=== PATIENT | male | born 1940 ===

== ENCOUNTER 2018-09-13 11:36 | Emergency (ER) | payer OTHER ==
--- NOTE | 2018-09-13 13:02 | C.PDOC ---
History Of Present Illness 89 year old female presents to the ED for evaluation of persistent hematuria for 2 weeks. Patient reports the last episode was last night, this morning urine was clear, and she is currently asymptomatic. Patient notes prior visit to [facility] this week for similar symptoms where a piedra was placed and removed. Denies fever, chills, nausea, vomiting, and any other associated symptoms. Time Seen by Provider: 09/13/18 12:59 Chief Complaint (Nursing): Male Genitourinary History Per: Patient History/Exam Limitations: no limitations Onset/Duration Of Symptoms: Days Current Symptoms Are (Timing): Still Present Past Medical History Reviewed: Historical Data, Nursing Documentation, Vital Signs Vital Signs: Last Vital Signs Temp 97.7 F 09/13/18 11:42 Pulse 82 09/13/18 11:42 Resp 20 09/13/18 11:42 BP 171/109 H 09/13/18 11:42 Pulse Ox 97 09/13/18 11:42 - Medical History PMH: Benign Prostatic Hyperplasia, HTN, Hyperlipidemia, Parkinson's Disease Family History: States: Unknown Family Hx - Social History Hx Alcohol Use: No Hx Substance Use: No - Immunization History Hx Tetanus Toxoid Vaccination: No Hx Influenza Vaccination: No Hx Pneumococcal Vaccination: No Review Of Systems Except As Marked, All Systems Reviewed And Found Negative. Constitutional: Negative for: Fever, Chills Gastrointestinal: Negative for: Nausea, Vomiting Genitourinary: Positive for: Hematuria Physical Exam - Physical Exam Appears: Well, Non-toxic Skin: Normal Color, Warm, Dry Head: Atraumatic, Normacephalic Eye(s): bilateral: Normal Inspection Oral Mucosa: Moist Neck: Normal ROM, Supple Chest: Symmetrical, No Deformity Cardiovascular: Rhythm Regular, No Murmur Respiratory: Normal Breath Sounds, No Rales, No Rhonchi, No Wheezing, Other (NARD.) Gastrointestinal/Abdominal: Normal Exam, Soft, No Tenderness Neurological/Psych: Oriented x3, Normal Speech ED Course And Treatment - Laboratory Results Result Diagrams: 09/13/18 13:01 09/13/18 13:01 O2 Sat by Pulse Oximetry: 97 (RA) Pulse Ox Interpretation: Normal Progress - Re-Evaluation Re-evaluation Note: 09/13/18 13:03 D/W DR Jennifer HENDERSON FOR POSSIBLE CYSTOSCOPY, O.R. PENDING 09/13/18 15:16 D/W DR HENDERSON, NO OR AVAIL TODAY. DC AFTER CT SCAN, WILL FU FOR POSSIBLE PROCEDURE 09/1509/13/18 15:37 COMFORTABLE NAD NO RECUR SINCE PRIOR EVAL 09/13/18 17:28 CT REPORT D/W DR HENDERSON WILL FU W PT SCHEDULED THIS WEEK. - Data Reviewed Data Reviewed: Lab, Diagnostic imaging, Old records Medical Decision Making Medical Decision Making: Plan: -Blood sent. Urinalysis. Progress/Update: Patient stable for discharge home. Disposition Counseled Patient/Family Regarding: Studies Performed, Diagnosis - Disposition Referrals: Sarina Henderson MD [Staff Provider] - Disposition: HOME/ ROUTINE Disposition Time: 15:37 Condition: IMPROVED Instructions: Blood in the Urine (Hematuria), Adult (DC) Forms: [employer] (Nicaraguan) Print Language: ESTONIAN - Clinical Impression Clinical Impression: Hematuria - Scribe Statement The provider has reviewed the documentation as recorded by the Scribe (Kamla Larry) Provider Attestation: All medical record entries made by the Scribe were at my direction and personally dictated by me. I have reviewed the chart and agree that the record accurately reflects my personal performance of the history, physical exam, medical decision making, and the department course for this patient. I have also personally directed, reviewed, and agree with the discharge instructions and disposition.
[2018-09-13 13:06] LABS: BASO # 0.1 K/uL (0.0-0.2); EOS # 0.2 K/uL (0.0-0.7); EOS % 2.1 % (0.0-4.0); HEMOGLOBIN 15.1 g/dL (12.0-18.0); LYMPH # 1.3 K/uL (1.0-4.3); LYMPH % 13.3 % (20.0-40.0); MEAN CORPUSCULAR HEMOGLOBIN 30.4 pg (27.0-31.0); MEAN CORPUSCULAR HGB CONC 33.8 g/dL (33.0-37.0); MONO # 0.8 K/uL (0.0-0.8); MONO % 7.9 % (0.0-10.0); NEUT # 7.2 K/uL (1.8-7.0); NEUT % 75.7 % (50.0-75.0); RBC 4.96 Mil/uL (4.40-5.90); RED CELL DISTRIBUTION WIDTH 14.1 % (11.5-14.5); WHITE BLOOD COUNT 9.5 K/uL (4.8-10.8)
[2018-09-13 13:16] LABS: URINE BILIRUBIN NEGATIVE (NEGATIVE); URINE BLOOD 1+ (NEGATIVE); URINE CLARITY Clear (Clear); URINE COLOR Straw (YELLOW); URINE GLUCOSE (UA) NORMAL (Normal); URINE LEUKOCYTE ESTERASE NEG Leu/uL (Negative); URINE PROTEIN NEGATIVE (NEGATIVE); URINE UROBILINOGEN NORMAL mg/dL (0.2-1.0)
[2018-09-13 13:37] LABS: ALB/GLOB RATIO 1.1 (1.0-2.1); ALBUMIN 3.5 g/dL (3.5-5.0); ALT/SGPT 27 U/L (21-72); AST/SGOT 28 U/L (17-59); BLOOD UREA NITROGEN 11 mg/dL (9-20); CALCIUM 9.1 mg/dl (8.6-10.4); GFR NON-AFRICAN AMERICAN > 60
[2018-09-13] MEDS ORDERED: Iodixanol 320 MG/ML 100 ML BOTTLE IV ONE (15:15)
[2018-09-13 15:22] VITALS: BP 171/90; PULSE 62; RESP 18; TEMP 98.3
[2018-09-13 15:38] VITALS: O2SAT 97
--- NOTE | 2018-09-13 16:51 | CT ---
Date of service: 09/13/2018 PROCEDURE: CT Abdomen and Pelvis with contrast HISTORY: hematuria COMPARISON: None available. TECHNIQUE: Contrast dose: 100 mL Visipaque IV Radiation dose: Total exam DLP = 585.52 mGy-cm. This CT exam was performed using one or more of the following dose reduction techniques: Automated exposure control, adjustment of the mA and/or kV according to patient size, and/or use of iterative reconstruction technique. FINDINGS: LOWER THORAX: Streaky atelectasis or consolidation involving the lateral right lower lobe. No visible pleural effusion or pneumothorax. Coronary artery calcifications. Fluid within the imaged portions of the esophagus consistent with gastroesophageal reflux. LIVER: Unremarkable. GALLBLADDER AND BILE DUCTS: Unremarkable. PANCREAS: Fatty atrophy. SPLEEN: 9 mm probable splenule. Otherwise unremarkable. ADRENALS: Unremarkable. KIDNEYS AND URETERS: The kidneys enhance symmetrically. No hydronephrosis or obstructing calculus identified. 18 mm low-density left renal lesion, favored to represent a cyst. Too small to characterize bilateral renal hypodensities, statistically likely cysts. VASCULATURE: Ectatic aorta. Aneurysmal dilatation of the distal thoracic aorta measuring approximately 3.7 cm in transverse dimension (series 3, image 23). Dense atherosclerotic calcification and mural plaque present. BOWEL: Stomach is nondistended. Lack of oral contrast limits evaluation for bowel pathology. Bowel loops appear within normal limits of caliber without evidence of obstruction. APPENDIX: The appendix appears within normal limits of caliber. No secondary signs of acute appendicitis. PERITONEUM: No significant free fluid. No definite free air. LYMPH NODES: 13 mm right inguinal lymph node. 8 mm left inguinal hernia. 11 mm pelvic lymph node 11 mm lymph node along the left pelvic sidewall. Numerous additional smaller pelvic lymph nodes evident. BLADDER: Unremarkable. REPRODUCTIVE: Markedly enlarged prostate gland measuring approximately 7.2 x 8.3 cm. BONES: Multilevel degenerative changes. Scoliosis convex to the right. Bilateral L5 spondylolysis. OTHER FINDINGS: Fat containing left inguinal hernia. IMPRESSION: Markedly enlarged prostate gland which appears heterogeneous. Recommend correlation with PSA. Adenopathy as above. 18 mm low-density left renal lesion, favored to represent a cyst. Too small to characterize bilateral renal hypodensities, statistically likely cysts. Renal ultrasound may be considered for further evaluation. Aneurysmal dilatation of the distal thoracic aorta measuring approximately 3.7 cm in transverse dimension. Streaky atelectasis or consolidation involving the lateral right lower lobe. Gastroesophageal reflux. Additional findings as above. Findings discussed with Dr. Graham on 09/13/18 at 4:41 p.m.
== END 2018-09-13 16:09 | disposition home or self-care (01) ==
LOC: C.ER 11:36
DX: R31.9 Hematuria, unspecified (principal); E78.5 Hyperlipidemia, unspecified; G20 Parkinson's disease; I10 Essential (primary) hypertension; N40.0 Benign prostatic hyperplasia without lower urinary tract symptoms
CPT/HCPCS: 74177; 80053; 81001; 85025; 99285; Q9967

== ENCOUNTER 2018-09-15 07:10 | Inpatient (IN) | payer OTHER ==
--- NOTE | 2018-09-15 08:07 | C.PDOC ---
History Of Present Illness Quan Lugo is a 78 year old male with PMHx of enlarged prostate presents to the ED sent by Dr. Ciaran Henderson for a procedure today. Patient was evaluated in ED 2 days ago with blood in his urine . Denies any physical complaints. Time Seen by Provider: 09/15/18 07:21 Chief Complaint (Nursing): Medical Clearance History Per: Patient History/Exam Limitations: no limitations Current Symptoms Are (Timing): Still Present Severity: Mild Past Medical History Reviewed: Historical Data, Nursing Documentation, Vital Signs Vital Signs: Last Vital Signs Temp 97.9 F 09/15/18 07:16 Pulse 71 09/15/18 07:16 Resp 18 09/15/18 07:16 BP 156/101 H 09/15/18 07:16 Pulse Ox 97 09/15/18 07:16 - Medical History PMH: Benign Prostatic Hyperplasia, HTN, Hyperlipidemia, Parkinson's Disease Family History: States: Unknown Family Hx - Social History Hx Alcohol Use: No Hx Substance Use: No - Immunization History Hx Tetanus Toxoid Vaccination: No Hx Influenza Vaccination: No Hx Pneumococcal Vaccination: No Review Of Systems Except As Marked, All Systems Reviewed And Found Negative. Constitutional: Negative for: Fever, Chills Gastrointestinal: Negative for: Nausea, Vomiting, Abdominal Pain, Diarrhea Genitourinary: Positive for: Hematuria Physical Exam - Physical Exam Appears: Non-toxic, No Acute Distress Skin: Warm, Dry Head: Normacephalic Eye(s): bilateral: Normal Inspection Oral Mucosa: Moist Neck: Normal ROM, Supple Chest: Symmetrical Cardiovascular: Rhythm Regular Respiratory: No Rales, No Rhonchi, No Wheezing Gastrointestinal/Abdominal: Soft, No Tenderness, No Distention, No Guarding, No Rebound Back: No CVA Tenderness Extremity: Normal ROM Neurological/Psych: Oriented x3, Normal Speech Disoriented To: Person ED Course And Treatment ECG: Interpreted By Me ECG Rhythm: Sinus Rhythm, Sinus Bradycardia ECG Interpretation: Normal Rate From EC O2 Sat by Pulse Oximetry: 97 (RA) Pulse Ox Interpretation: Normal - Radiology CXR: Interpreted by Me CXR Interpretation: Yes: No Acute Disease Reassessment Condition: Unchanged Medical Decision Making Medical Decision Making: Plan - EKG - CXR - IV fluids - UA - Bloodwork Disposition Doctor Will See Patient In The: Hospital - Disposition Disposition: HOSPITALIZED Disposition Time: 09:15 Condition: STABLE - POA Present On Arrival: None - Clinical Impression Clinical Impression: Hematuria - PA / BRAILLE TRANSCRIBER / Resident Statement MD/DO has reviewed & agrees with the documentation as recorded. - Scribe Statement The provider has reviewed the documentation as recorded by the Scribe Linda Lorenz All medical record entries made by the Saiibe were at my direction and personally dictated by me. I have reviewed the chart and agree that the record accurately reflects my personal performance of the history, physical exam, medical decision making, and the department course for this patient. I have also personally directed, reviewed, and agree with the discharge instructions and disposition.
[2018-09-15] MEDS: Sodium Chloride 0.9% 1,000 ML IV SCH (08:41)
--- NOTE | 2018-09-15 11:44 | RAD ---
HISTORY: SOB COMPARISON: Lung bases on CT abdomen and pelvis with IV contrast performed 09/13/18 TECHNIQUE: Chest, one view. FINDINGS: Examination limited by habitus and patient obliquity. LUNGS: Atelectasis/consolidation right lower lobe. Mild left basilar atelectasis. Please note that chest x-ray has limited sensitivity for the detection of pulmonary masses. PLEURA: No significant pleural effusion identified. No definite pneumothorax . CARDIOVASCULAR: Mild cardiomegaly. Atherosclerotic calcifications of an ectatic aorta. OSSEOUS STRUCTURES: Chronic appearing right rib fracture deformities. VISUALIZED UPPER ABDOMEN: Unremarkable. OTHER FINDINGS: None. IMPRESSION: Atelectasis/consolidation right lower lobe. Mild left basilar atelectasis.
[2018-09-15] MEDS ORDERED: Iohexol 240 (50 ml) ONE (15:49)
[2018-09-15] MEDS ORDERED: cefTRIAXone 1 gm 1 GM/100 ML BAG IVPB ONE (15:49)
[2018-09-15] MEDS ORDERED: Lidocaine 2% Jelly (Uro-Jet) ONE (15:50)
[2018-09-15] MEDS ORDERED: HYDROmorphone 0.5 mg/0.5 ml ISec IVP PRN (16:01)
[2018-09-15] MEDS ORDERED: Propofol 10 mg/ml Inj (20 ML) ONE (16:07)
[2018-09-15] MEDS ORDERED: Lactated Ringer's 1,000 ML IV ONE (16:57)
--- NOTE | 2018-09-15 17:52 | RAD ---
Date of service: 09/15/2018 PROCEDURE: Intraoperative Fluoroscopy. HISTORY: HEMATURIA FINDINGS: Fluoroscopic assistance was provided f for Flouroscopy time =4.5s and radiation dose 0.15858 mGy Please refer to the operative report from Dr. BAEZ, [place].
[2018-09-15] MEDS ORDERED: Oxycodone/Acetaminophen 5/325 mg Tab PO PRN (18:21)
--- NOTE | 2018-09-15 18:24 | CP.PCM.CON ---
History of Present Illness - History of Present Illness History of Present Illness: uROLOGY CONSULTATION IMP: HEMATURIA BPH PARKINSONS DISEASE FULL NOTE T/F Past Patient History - Infectious Disease Hx of Infectious Diseases: None - Past Social History Smoking Status: Never Smoked - CARDIAC Hx Hypertension: Yes - NEUROLOGICAL Hx Parkinson's Disease: Yes - PSYCHIATRIC Hx Substance Use: No - SURGICAL HISTORY Other/Comment: Prostate surgery - ANESTHESIA Hx Anesthesia: Yes Hx Anesthesia Reactions: No Meds Allergies/Adverse Reactions: Allergies Allergy/AdvReac Type Severity Reaction Status Date / Time No Known Allergies Allergy Verified 09/13/18 11:48 - Medications Medications: Current Medications Sodium Chloride (Sodium Chloride 0.9%) 1,000 mls @ 100 mls/hr IV .Q10H CURLY Last Admin: 09/15/18 08:41 Dose: 100 mls/hr Results - Vital Signs Recent Vital Signs: Last Vital Signs Temp 97.4 F L 09/15/18 16:57 Pulse 79 09/15/18 18:15 Resp 12 09/15/18 18:15 BP 160/85 H 09/15/18 18:15 Pulse Ox 100 09/15/18 18:15 Assessment & Plan - Date & Time Date: 09/15/18 Time: 15:30
--- NOTE | 2018-09-15 18:26 | PCM.SURG1 ---
Surgeon's Initial Post Op Note - Surgeon's Notes Surgeon: Jennifer BAEZ Wig Maker: NONE Pre-Operative Diagnosis: HENMATURIA Operative Findings: SAME. ENLARGED PROSTATE. BLEEDING OF PROSTATIC ORIGIN Post-Operative Diagnosis: SAME Operation Performed: CYSTOSCOPY. FULGURATION OF PROSTATIC BLEEDING. CYSTOGRAM Specimen/Specimens Removed: URINE Estimated Blood Loss: EBL {In ML}: 50 Blood Products Given: N/A Post-Op Condition: Good Date of Surgery/Procedure: 09/15/18 Time of Surgery/Procedure: 16:30
[2018-09-15 20:34] VITALS: RESP 20
--- NOTE | 2018-09-15 23:20 | CP.PCM.HP ---
<Lisa Kat P - Last Filed: 09/16/18 04:13> History of Present Illness - History of Present Illness History of Present Illness: H&P for hospitalist service HPI: 78 year old male with PMHx of HTN, enlarged prostate and possible Parkinson's disease presented for intermittent hematuria for the past 2 weeks and was admitted s/p cystoscopy, cystogram and fulguration of prostatic bleed with Dr. Jennifer Henderson on 09/15. Patient complains of mild burning pain to penis since the procedure. Denies fever, chills, nausea, vomiting, dizziness, chest pain, shortness of breath, and abdominal pain. PMHx: HTN, enlarged prostate and possible Parkinson's disease PSHx: Prostate surgery 10 years ago, appendectomy 6 years ago. Meds: Losartan 50mg QD, Medications from [facility]: Xicooneural 3, Biperideno 2, Nimotop, cerebrotin, valpakine Allergies: PCN, itching FamHx: Brother 1: DM, Brother 2: prostate cancer, Brother 3: HTN SocHx: Denies tobacco, alcohol, drugs, lives with Proxy: Paola Bustillo [phone] Code Status: full code PMD: PMD and neurologist are in [facility], has seen Dr. Serrano here. Review of Systems: -Gen: No fever, No chills, No headache, No lethargy, No weakness. -HEENT: No dizziness, No change in vision, No change in hearing, No sore throat, No dysphagia, No nasal congestion, No mucous. -Cardio: No chest pain, No palpitations, No lower extremity edema, No orthopnea. -Resp: No cough, No dyspnea, No hemoptysis, No wheezing, No pain on inspiration. -GI: No abdominal pain, No nausea/vomiting, No diarrhea, +constipation, No hematochezia, No hematemesis. -: + dysuria, No urinary freq, No incontinence, + hematuria, No change in urinary stream. -MSK: No back pain, No muscle weakness, No radiating pain. -Skin: No itching, No rash, No lesions. -Neuro: + tremulousness, No confusion, No numbness, No tingling, No focal weakness, No radicular pain, No syncope. -Psych: No anxiety, No depression, No H/I, No S/I, No hallucinations. Present on Admission - Present on Admission Any Indicators Present on Admission: No Past Patient History - Infectious Disease Hx of Infectious Diseases: None - Past Social History Smoking Status: Never Smoked - CARDIAC Hx Hypertension: Yes - NEUROLOGICAL Hx Parkinson's Disease: Yes - MUSCULOSKELETAL/RHEUMATOLOGICAL Hx Falls: No - GENITOURINARY/GYNECOLOGICAL Hx Prostate Problems: Yes - PSYCHIATRIC Hx Substance Use: No - SURGICAL HISTORY Other/Comment: Prostate surgery - ANESTHESIA Hx Anesthesia: Yes Hx Anesthesia Reactions: No Hx Malignant Hyperthermia: No Has any member of the family had a problem w/ anesthesia?: No Meds Allergies/Adverse Reactions: Allergies Allergy/AdvReac Type Severity Reaction Status Date / Time No Known Allergies Allergy Verified 09/13/18 11:48 Physical Exam - Constitutional Appears: No Acute Distress - Head Exam Head Exam: ATRAUMATIC, NORMOCEPHALIC - Eye Exam Eye Exam: EOMI, PERRL - ENT Exam ENT Exam: Mucous Membranes Moist - Neck Exam Neck exam: Positive for: Full Rom, Normal Inspection - Respiratory Exam Respiratory Exam: Clear to Auscultation Bilateral. absent: Rales, Rhonchi, Wheezes - Cardiovascular Exam Cardiovascular Exam: RRR, +S1, +S2 - GI/Abdominal Exam GI & Abdominal Exam: Normal Bowel Sounds, Soft. absent: Guarding, Rebound, Tenderness - Extremities Exam Extremities exam: Positive for: normal capillary refill, normal inspection, pedal pulses present. Negative for: calf tenderness, pedal edema, tenderness - Neurological Exam Neurological exam: Alert, CN II-XII Intact, Oriented x3 Additional comments: +tremor noted to jaw, and upper extremities - Psychiatric Exam Psychiatric exam: Normal Affect, Normal Mood - Skin Skin Exam: Dry, Intact, Warm Results - Vital Signs Recent Vital Signs: Last Vital Signs Temp 97.5 F L 09/15/18 20:32 Pulse 75 09/15/18 20:58 Resp 20 09/15/18 20:32 BP 155/102 H 09/15/18 20:58 Pulse Ox 95 09/15/18 20:32 Assessment & Plan - Assessment and Plan (Free Text) Plan: 78 year old male with PMHx of HTN, enlarged prostate and possible Parkinson's disease presented for intermittent hematuria with clots for the past 2 weeks and was admitted s/p cystoscopy, cystogram and fulguration of prostatic bleed with Dr. Jennifer Henderson Prostatic enlargement S/p cystoscopy, cystogram and fulguration of prostatic bleed - Management as per Urology, Dr. Jennifer henderson -Ceftriaxone 1g IV daily -Percocet 5/325 Q4H PRN pain -NS 100 mls/hr Hx HTN - Continue home med Losartan 50mg PO daily Hx of possible Parkinsons -Patient taking medications from [facility] -may take personal medications due to inabilty to find conversion -outpatient reconciliation of meds -Xiconeural 3 daily -Biperideno 2 daily -Nimotop BID -Cerebrotin BID -Valpakine BID Prophylaxis -SCD -Hold chemical anticoagulation due to hematuria/recent procedure -GI ppx not indicated -HHD Case discussed with attending physician, Dr. Hoyos. <Eleazar Hoyos - Last Filed: 09/16/18 06:23> Results - Vital Signs Recent Vital Signs: Last Vital Signs Temp 97.7 F 09/16/18 00:11 Pulse 78 09/16/18 00:11 Resp 20 09/16/18 00:11 BP 159/89 H 09/16/18 00:11 Pulse Ox 95 09/16/18 00:11 Assessment & Plan - Date & Time Date: 09/16/18 (I have seen and examined the patient. I agree with the findings and plan of care as documented by Dr. Kat. Patient with prostatic enlargement s/p cystoscopy. Management as per Dr Henderson. Hospitalist team notified of admission at approximately 9:15PM on 09/15/18. History of parkinson's diagnosed in patient's home country. May continue home meds. Monitor for acute changes.) Time: 06:20 Attending/Attestation - Attestation I have personally seen and examined this patient.: Yes I have fully participated in the care of the patient.: Yes I have reviewed all pertinent clinical information: Yes
[2018-09-16] MEDS: Sodium Chloride 0.9% 1,000 ML IV SCH ×2 (03:45→05:10)
--- NOTE | 2018-09-16 05:11 | OP ---
PROCEDURE DATE: 09/15/2018 UROLOGY OPERATIVE REPORT PREOPERATIVE DIAGNOSES: Hematuria. History of urinary retention. POSTOPERATIVE DIAGNOSES: Hematuria. History of urinary retention. Prostatic enlargement. Bleeding of prostatic origin. PROCEDURES: Cystoscopy. Fulguration of prostatic bleeding. Cystogram. Attempted retrograde pyelogram. OPERATING SURGEON: Sarina Henderson MD Procedure was formed under fluoroscopic control as well as video endoscopic control. DESCRIPTION OF PROCEDURE: Procedure as follows. The patient received perioperative antibiotics. The patient was placed in lithotomy position. The genitalia were prepped and draped sterilely. A 22-Eritrean cystoscope sheath was introduced under direct vision. Urethra, prostate and bladder were inspected with 30-degree and 70-degree lenses. FINDINGS: There was no stricture in the anterior urethra. There was marked prostatic hypertrophy. Prostatic urethra was approximately 5 cm in length and occlusive. There was [id number] contact bleeding from the large veins on the surface of the prostate. The bladder was somewhat obscured due to the bleeding. There was moderate bladder trabeculation. There was no bladder tumor or stone identified. The ureteral orifices could not be identified due to prostatic intrusion. Retrograde pyelogram was attempted with the cone-tip catheter; however, the ureteral orifices could not be catheterized. Fulguration of the prostate through the cystoscope sheath with using the Ball electrode was performed. However, adequate hemostasis could not be achieved. The cystoscope and sheath were removed. A 26-Eritrean continuous-flow resectoscope sheath was introduced under direct vision using the visual obturator. The resectoscope element was inserted along with the rollerball electrode. The fulguration of the multiple sites of bleeding within the lateral lobe of the prostate as well as the floor and bladder neck were performed using rollerball electrode and electrocautery. There were noted to be multiple venous bleeding sites as well as arterial bleeding sites. Hemostasis was achieved. The bladder was re-inspected. There was no bladder tumor or stone identified. The resectoscope and sheath were removed. Thomas catheter was inserted. Bladder irrigation was clear. Rectal examination was performed. Prostate was supple and smooth approximately 50 to 60 g in size, without fixation, induration or nodularity. The patient was returned to supine position. The patient tolerated the procedure without complication. The patient was recovered, transferred to the PACU in satisfactory condition. [place] MD Santiago
[2018-09-16 07:40] VITALS: BP 189/98; PULSE 69; TEMP 97.8; O2SAT 95
--- NOTE | 2018-09-16 07:54 | CP.PCM.PN ---
Subjective - Date & Time of Evaluation Date of Evaluation: 09/16/18 Time of Evaluation: 07:52 - Subjective Subjective: Isabella Monroe PGY1 Progress note for Dr. Metcalf Pt was examined at bedside this morning. He complains of some burning with urin ation. He denies any nausea, vomiting, fever, chills, shortness of breath, abdominal pain. Objective - Vital Signs/Intake and Output Vital Signs (last 24 hours): Temp Pulse Resp BP Pulse Ox 97.8 F 69 20 189/98 H 95 09/16/18 07:36 09/16/18 07:36 09/16/18 07:36 09/16/18 07:36 09/16/18 07:36 Intake and Output: 09/16/18 09/16/18 06:59 18:59 Intake Total 6600 8920 Output Total 5750 36273 Balance 850 -2980 - Medications Medications: Current Medications Sodium Chloride (Sodium Chloride 0.9%) 1,000 mls @ 100 mls/hr IV .Q10H CURLY Last Admin: 09/16/18 05:10 Dose: 100 mls/hr Ceftriaxone Sodium 1 gm/ (Dextrose) 100 mls @ 50 mls/30 min IVPB DAILY [facility]; Protocol Influenza Virus Vaccine (Fluzone Quad [id number]) 60 mcg IM .ONCE ONE Stop: 09/18/18 10:01 Losartan Potassium (Cozaar) 50 mg PO DAILY [facility] Oxycodone/Acetaminophen (Percocet 5/325 Mg Tab) 1 tab PO Q4H PRN PRN Reason: Pain, severe (8-10) Stop: 09/18/18 18:22 - Constitutional Appears: Well, No Acute Distress - Head Exam Head Exam: ATRAUMATIC, NORMOCEPHALIC - Eye Exam Eye Exam: EOMI, Normal appearance - ENT Exam ENT Exam: Mucous Membranes Moist - Neck Exam Neck Exam: Normal Inspection - Respiratory Exam Respiratory Exam: Clear to Ausculation Bilateral, NORMAL BREATHING PATTERN. absent: Rales, Rhonchi, Wheezes - GI/Abdominal Exam GI & Abdominal Exam: Soft, Normal Bowel Sounds. absent: Distended, Tenderness - Exam External exam: absent: Ecchymosis, Erythema Additional comments: piedra draining clear yellow liquid - Neurological Exam Neurological Exam: Alert, Awake, CN II-XII Intact Additional comments: tremor in b/l UE and lower face - Psychiatric Exam Psychiatric exam: Normal Affect, Normal Mood - Skin Skin Exam: Dry Assessment and Plan - Assessment and Plan (Free Text) Assessment: 78 year old male with PMHx of HTN, enlarged prostate and possible Parkinson's disease presented for intermittent hematuria with clots for the past 2 weeks and was admitted s/p cystoscopy, cystogram and fulguration of prostatic bleed with Dr. Jennifer Henderson Plan: Prostatic enlargement, Hematuria - s/p cystoscopy, cystogram and fulguration of prostatic bleed 09/15 - Ceftriaxone 1g IV daily (09/15) - Percocet 5/325 Q4H PRN pain - NS 100 mls/hr - UCx: pending - piedra draining clear yellow liquid - Dr. Jennifer Henderson consulted - f/u recs for management Hx HTN - Losartan 50mg PO daily Hx of Parkinsons - pt taking medications from [facility], brought to pharmacy but cannot convert - pt permitted to take home medications - Xiconeural 3 daily - Biperideno 2 daily - Nimotop BID - Cerebrotin BID - Valpakine BID Prophylaxis - DVT: SCD - GI: ppx not indicated - HHD Case discussed with Dr. Metcalf
[2018-09-16 08:34] LABS: BASO % 0.4 % (0.0-2.0); EOS # 0.2 K/uL (0.0-0.7); EOS % 1.6 % (0.0-4.0); HEMOGLOBIN 14.9 g/dL (12.0-18.0); LYMPH # 2.2 K/uL (1.0-4.3); LYMPH % 18.4 % (20.0-40.0); MEAN CELL VOLUME 88.9 fL (80.0-94.0); MEAN CORPUSCULAR HGB CONC 33.7 g/dL (33.0-37.0); MEAN PLATELET VOLUME 8.2 fL (7.2-11.7); MONO # 1.3 K/uL (0.0-0.8); MONO % 11.2 % (0.0-10.0); NEUT # 8.1 K/uL (1.8-7.0); NEUT % 68.4 % (50.0-75.0); NRBC % 0.1 % (0.0-2.0); RBC 4.96 Mil/uL (4.40-5.90); RED CELL DISTRIBUTION WIDTH 13.9 % (11.5-14.5); WHITE BLOOD COUNT 11.8 K/uL (4.8-10.8)
[2018-09-16 08:47] LABS: ALB/GLOB RATIO 1.2 (1.0-2.1); ALBUMIN 3.5 g/dL (3.5-5.0); ALT/SGPT 23 U/L (21-72); AST/SGOT 25 U/L (17-59); BLOOD UREA NITROGEN 12 mg/dL (9-20); GFR NON-AFRICAN AMERICAN > 60
[2018-09-16] MEDS ORDERED: cefTRIAXone IV 1 gm in Dextros 1 GM in Dextrose 5% In Water 50 ML IVPB SCH (10:00)
--- NOTE | 2018-09-16 12:52 | CARD ---
APPROVED REPORT Date of service: 09/15/2018 EKG Measurement Heart [id number] <Conclusion> Sinus bradycardia Left anterior fascicular block Abnormal ECG
[2018-09-16] MEDS ORDERED: Influenza Vaccine 60 MCG/0.5 ML SYR (3 yr & up) IM ONE (13:15)
--- NOTE | 2018-09-16 13:27 | RAD ---
Date of service: 09/15/2018 HISTORY: HEMATURIA COMPARISON: None available. FINDINGS: BOWEL: Normal. No obstruction. No free air. BONES: Normal. OTHER FINDINGS: None. IMPRESSION: No significant or acute findings to account for/ related to the clinical presentation.
--- NOTE | 2018-09-16 15:20 | CP.PCM.DIS ---
Provider - Provider Date of Admission: 09/15/18 17:14 Attending physician: Prosper Gilbert MD Consults: Uro: Jennifer Henderson Time Spent in preparation of Discharge (in minutes): 70 Hospital Course - Lab Results Lab Results: Most Recent Lab Values WBC 11.8 K/uL (4.8-10.8) H 09/16/18 08:18 RBC 4.96 Mil/uL (4.40-5.90) 09/16/18 08:18 Hgb 14.9 g/dL (12.0-18.0) 09/16/18 08:18 Hct 44.1 % (35.0-51.0) 09/16/18 08:18 MCV 88.9 fL (80.0-94.0) 09/16/18 08:18 MCH 30.0 pg (27.0-31.0) 09/16/18 08:18 MCHC 33.7 g/dL (33.0-37.0) 09/16/18 08:18 RDW 13.9 % (11.5-14.5) 09/16/18 08:18 Plt Count 276 K/uL (130-400) 09/16/18 08:18 MPV 8.2 fL (7.2-11.7) 09/16/18 08:18 Neut % (Auto) 68.4 % (50.0-75.0) 09/16/18 08:18 Lymph % (Auto) 18.4 % (20.0-40.0) L 09/16/18 08:18 [place] % (Auto) 11.2 % (0.0-10.0) H 09/16/18 08:18 Eos % (Auto) 1.6 % (0.0-4.0) 09/16/18 08:18 Baso % (Auto) 0.4 % (0.0-2.0) 09/16/18 08:18 Neut # (Auto) 8.1 K/uL (1.8-7.0) H 09/16/18 08:18 Lymph # (Auto) 2.2 K/uL (1.0-4.3) 09/16/18 08:18 [place] # (Auto) 1.3 K/uL (0.0-0.8) H 09/16/18 08:18 Eos # (Auto) 0.2 K/uL (0.0-0.7) 09/16/18 08:18 Baso # (Auto) 0.0 K/uL (0.0-0.2) 09/16/18 08:18 Sodium 141 mmol/L (132-148) 09/16/18 08:18 Potassium 3.7 mmol/L (3.6-5.2) 09/16/18 08:18 Chloride 109 mmol/L (98-107) H 09/16/18 08:18 Carbon Dioxide 26 mmol/L (22-30) 09/16/18 08:18 Anion Gap 9 (10-20) L 09/16/18 08:18 BUN 12 mg/dL (9-20) 09/16/18 08:18 Creatinine 1.0 mg/dL (0.8-1.5) 09/16/18 08:18 Est GFR ( Amer) > 60 09/16/18 08:18 Est GFR (Non-Af Amer) > 60 09/16/18 08:18 Random Glucose 91 mg/dL (75-110) 09/16/18 08:18 Calcium 9.0 mg/dl (8.6-10.4) 09/16/18 08:18 Total Bilirubin 0.4 mg/dL (0.2-1.3) 09/16/18 08:18 AST 25 U/L (17-59) 09/16/18 08:18 ALT 23 U/L (21-72) 09/16/18 08:18 Alkaline Phosphatase 62 U/L (38-126) 09/16/18 08:18 Total Protein 6.4 g/dL (6.3-8.3) 09/16/18 08:18 Albumin 3.5 g/dL (3.5-5.0) 09/16/18 08:18 Globulin 3.0 gm/dL (2.2-3.9) 09/16/18 08:18 Albumin/Globulin Ratio 1.2 (1.0-2.1) 09/16/18 08:18 - Hospital Course Hospital Course: Upon Admission: 78 year old male with PMHx of HTN, enlarged prostate and possible Parkinson's disease presented for intermittent hematuria with clots for the past 2 weeks and was admitted s/p cystoscopy, cystogram and fulguration of prostatic bleed with Dr. Jennifer Henderson for overnight observation. Hospital Course: Cystoscopy, cystogram and fulguration of prostatic bleed was performed. Pt was given Ceftriaxone, Percocet for pain, and fluids. A piedra was placed which drained clear yellow liquid. Pt was permitted to take home parkinsons medications as well as home losartan. Vitals and labs were stable, and pt was deemed stable for d/c as per Dr. Henderson. Upon Discharge: Pt was deemed stable for discharge and was instructed to follow up with Dr. Henderson. He was instructed to take his medications as prescribed and to return to the ED should symptoms return. Discharge Exam - Head Exam Head Exam: ATRAUMATIC, NORMOCEPHALIC - Eye Exam Eye Exam: EOMI, Normal appearance Pupil Exam: NORMAL ACCOMODATION - ENT Exam ENT Exam: Mucous Membranes Moist - Respiratory Exam Respiratory Exam: Clear to PA & Lateral, NORMAL BREATHING PATTERN. absent: Decreased Breath Sounds, Rales, Rhonchi, Wheezes - Cardiovascular Exam Cardiovascular Exam: REGULAR RHYTHM, +S1, +S2. absent: Gallop, Rubs, Systolic Murmur - GI/Abdominal Exam GI & Abdominal Exam: Normal Bowel Sounds, Soft. absent: Distended, Tenderness - Exam External exam: absent: Ecchymosis, Erythema - Neurological Exam Neurological exam: Alert, Oriented x3 Additional comments: tremor in lower face and b/l UE - Psychiatric Exam Psychiatric exam: Normal Affect, Normal Mood Discharge Plan - Follow Up Plan Condition: STABLE Disposition: HOME/ ROUTINE Instructions: Blood in the Urine (Hematuria), Adult (DC), Cystoscopy (DC) Additional Instructions: Please follow up with Dr. Henderson within 30 days. Phone number [phone]. Please take your medications as prescribed. If symptoms worsen, please return to the emergency department. Take care and be well. Por favor, siga con el Dr. Henderson dentro de 30 s[address]ano. Nmero de telfono . Beecher por favor juliana medicaciones segn lo prescrito. Si los sntomas empeoran, por favor regrese al Departamento de emergencias. Cudate y Estate aleksandra. Referrals: Sarina Henderson MD [Staff Provider] -
== END 2018-09-16 14:17 | disposition home or self-care (01) | DRG 482 ==
LOC: C.ER 07:10 → C.3T 07:10 → C.SDS 08:50 → C.9S 17:14 → C.3T 19:29
PROVIDERS: ADMIT Family Medicine; ATTEND Family Medicine
PROC: BT1BZZZ Fluoroscopy of Bladder and Urethra (ICD-10-PCS; 2018-09-15)
PROC: 0T9B70Z Drainage of Bladder with Drainage Device, Via Natural or Artificial Opening (ICD-10-PCS; 2018-09-15)
PROC: 0V508ZZ Destruction of Prostate, Via Natural or Artificial Opening Endoscopic (ICD-10-PCS; principal; 2018-09-15 15:30)
DX: N42.1 Congestion and hemorrhage of prostate (principal); N40.0 Benign prostatic hyperplasia without lower urinary tract symptoms; N32.89 Other specified disorders of bladder; G20 Parkinson's disease; I10 Essential (primary) hypertension; E78.5 Hyperlipidemia, unspecified; Z80.42 Family history of malignant neoplasm of prostate; Z82.49 Family history of ischemic heart disease and other diseases of the circulatory system

== ENCOUNTER 2018-10-06 13:30 | Emergency (ER) | payer OTHER ==
[2018-10-06 13:42] VITALS: TEMP 97.7
[2018-10-06] MEDS ORDERED: Sodium Chloride 0.9% 1,000 ML IV SCH (14:30)
[2018-10-06 15:29] LABS: BASO # 0.1 K/uL (0.0-0.2); BASO % 1.1 % (0.0-2.0); EOS % 0.2 % (0.0-4.0); HEMOGLOBIN 13.5 g/dL (12.0-18.0); LYMPH % 7.9 % (20.0-40.0); MEAN CELL VOLUME 88.8 fL (80.0-94.0); MEAN CORPUSCULAR HEMOGLOBIN 29.4 pg (27.0-31.0); MEAN CORPUSCULAR HGB CONC 33.2 g/dL (33.0-37.0); MEAN PLATELET VOLUME 7.8 fL (7.2-11.7); MONO # 1.4 K/uL (0.0-0.8); MONO % 11.2 % (0.0-10.0); NEUT # 10.2 K/uL (1.8-7.0); NEUT % 79.6 % (50.0-75.0); PLATELET COUNT 373 K/uL (130-400); RBC 4.57 Mil/uL (4.40-5.90); RED CELL DISTRIBUTION WIDTH 13.6 % (11.5-14.5); WHITE BLOOD COUNT 12.8 K/uL (4.8-10.8)
[2018-10-06 15:47] LABS: ALBUMIN 3.5 g/dL (3.5-5.0); CALCIUM 8.6 mg/dl (8.6-10.4)
[2018-10-06 15:56] LABS: SQUAMOUS EPITHIAL < 1 /hpf (0-5); URINE BILIRUBIN NEGATIVE (NEGATIVE); URINE BLOOD 2+ (NEGATIVE); URINE CLARITY Hazy (Clear); URINE COLOR Yellow (YELLOW); URINE GLUCOSE (UA) NORMAL (Normal); URINE PROTEIN 2+ mg/dL (NEGATIVE); URINE UROBILINOGEN NORMAL mg/dL (0.2-1.0)
--- NOTE | 2018-10-06 15:56 | C.PDOC ---
History Of Present Illness 78 y/o male presents with who complains patient has had intermittent abdominal pain for 1 week. Associated with mild dysuria. Patient initially was constipated earlier in the week, saw his wifes PMD who prescribed stool softene r. Now reports a few episodes of diarrhea. No fever. Patient is otherwise eating well. Denies any chest pain, SOB, chills, cold sweats, dizziness, or bloody stool. Time Seen by Provider: 10/06/18 14:05 Chief Complaint (Nursing): GI Problem History Per: Patient History/Exam Limitations: no limitations Onset/Duration Of Symptoms: Days Current Symptoms Are (Timing): Still Present Past Medical History Reviewed: Historical Data, Nursing Documentation, Vital Signs Vital Signs: Last Vital Signs Temp 97.7 F 10/06/18 13:38 Pulse 105 H 10/06/18 13:38 Resp 16 10/06/18 13:38 BP 107/73 10/06/18 13:38 Pulse Ox 99 10/06/18 13:38 - Medical History PMH: Benign Prostatic Hyperplasia, HTN, Hyperlipidemia, Parkinson's Disease - [facility] Procedures DESTRUCTION OF PROSTATE, ENDO (09/15/18) DRAINAGE OF BLADDER WITH DRAINAGE DEVICE, VIA OPENING (09/15/18) FLUOROSCOPY OF BLADDER AND URETHRA (09/15/18) Family History: States: Unknown Family Hx - Social History Hx Alcohol Use: No Hx Substance Use: No - Immunization History Hx Tetanus Toxoid Vaccination: No Hx Influenza Vaccination: No Hx Pneumococcal Vaccination: No Review Of Systems Except As Marked, All Systems Reviewed And Found Negative. Constitutional: Negative for: Fever, Chills Cardiovascular: Negative for: Chest Pain Respiratory: Negative for: Shortness of Breath Gastrointestinal: Positive for: Abdominal Pain, Diarrhea, Constipation. Negative for: Vomiting, Melena, Hematochezia Genitourinary: Positive for: Dysuria (mild). Negative for: Hematuria Neurological: Negative for: Weakness, Dizziness Physical Exam - Physical Exam Appears: Non-toxic, No Acute Distress Skin: Normal Color, Warm, Dry Head: Atraumatic, Normacephalic Eye(s): bilateral: Normal Inspection, PERRL, EOMI Oral Mucosa: Moist Neck: Normal ROM Chest: Symmetrical Cardiovascular: Rhythm Regular, No Murmur Respiratory: Normal Breath Sounds, No Rales, No Rhonchi, No Wheezing Gastrointestinal/Abdominal: Soft, Tenderness (Minimal left-sided abdominal tenderness), No Guarding, No Rebound Back: Normal Inspection, No CVA Tenderness Extremity: Bilateral: Atraumatic, Normal Color And Temperature Neurological/Psych: Oriented x3, Normal Speech, Other (Parkinsonian resting tremor) ED Course And Treatment - Laboratory Results Result Diagrams: 10/06/18 15:24 10/06/18 15:24 O2 Sat by Pulse Oximetry: 99 (RA) Pulse Ox Interpretation: Normal - CT Scan/US CT A/P Other Rad Studies (CT/US): Read By Radiologist, Radiology Report Reviewed CT/US Interpretation: Accession No. : [id number]. Patient Name / ID : TRENT AVILES / [id number]. Exam Date : 10/06/2018 16:41:49 ( Approved ). Study Comment : Sex / Age : M / 78Y. Creator : Naye Quiles. Dictator : Belen Parekh MD. Snowboarder : Harness Inspector : Belen Parekh MD. Approver2 : Report Date : 10/06/2018 16:53:44. My Comment : . Date of service: 10/06/2018. PROCEDURE: CT Abdomen and Pelvis with contrast. HISTORY: Left sided abdominal pain. COMPARISON: 09/21/2018. TECHNIQUE: CT scan of the abdomen and pelvis was performed after administration of intravenous contrast. Oral contrast was not administered. Coronal and sagittal reformatted images were obtained. Contrast dose: 100 mL Visipaque. Radiation dose: Total exam DLP = 1099.16 mGy-cm. This CT exam was performed using one or more of the following dose reduction techniques: Automated exposure control, adjustment of the mA and/or kV according to patient size, and/or use of iterative recons truction technique. FINDINGS: LOWER THORAX: There is focal subpleural airspace disease in the right lung base. Small right pleural effusion. There is dependent atelectasis in the left lung base. Mild cardiomegaly. LIVER: Normal in size with homogeneous enhancement. No gross lesion or ductal dilatation. GALLBLADDER AND BILE DUCTS: Well distended. No calcified gallstones, wall thickening or pericholecystic fluid. PANCREAS: Normal in size with homogeneous enhancement. No gross lesion or ductal dilatation. SPLEEN: Normal in size and appearance. ADRENALS: No discrete nodule. KIDNEYS AND URETERS: Normal in size with homogeneous enhancement. Mild right hydronephrosis and mild fullness in the left collecting system. Mild diffuse dilatation of the right ureter. Stable 2.2 cm simple cyst in the left interpolar region. VASCULATURE: No aortic aneurysm. Mild aortic atherosc lerotic calcifications present. BOWEL: Evaluation of the bowel is limited in the absence of oral contrast. The small bowel loops are normal in caliber. Colonic diverticulosis without CT evidence for acute diverticulitis. No bowel wall thickening or obstruction. APPENDIX: Normal appendix. PERITONEUM: No free fluid. No free air. LYMPH NODES: No enlarged lymph nodes. BLADDER: The urinary bladder is well distended. There is moderate circumferential mural thickening. REPRODUCTIVE: There is redemonstration of severe enlargement of the prostate gland with medium lowered hypertrophy resulting in mass effect on the base of the urinary bladder. BONES: No acute fracture. Diffuse bone demineralization and advanced multilevel degenerative disc disease. 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 OTHER FINDINGS: None. IMPRESSION: No acute abdominal or pelvic abnormality. Interval development of mild right hydronephrosis and mild fullness in the left collecting system as well as diffuse dilatation of the right ureter likely related to obstructive uropathy resulting from a severely enlarged prostate gland. Moderate diffuse circumferential mural thickening of the urinary bladder wall is also likely related to bladder outlet obstruction however underlying cystitis cannot be excluded. Medical Decision Making Medical Decision Making: Impression: Constipation, Intermittent abdominal pain, now associated with diarrhea after taking stool softener Plan: --CMP --Lipase --CBC --Urinalysis --Urine culture --NS IV fluids --CT Abd/Pelvis with IV contrast Disposition - Disposition Referrals: Sarina Henderson MD [Staff Provider] - Disposition: HOME/ ROUTINE Disposition Time: 17:15 Condition: GOOD Additional Instructions: STEFAN NEWMAN, thank you for letting us take care of you today. The emergency medical care you received today was directed at your acute symptoms. If you were prescribed any medication, please fill it and take as directed. It may take several days for your symptoms to resolve. Return to the Emergency Department if your symptoms worsen, do not improve, or if you have any other problems. Please contact your doctor or call one of the physicians/clinics you have been referred to that are listed on the Patient Visit Information form that is included in your discharge packet. Bring any paperwork you were given at discharge with you along with any medications you are taking to your follow up visit. Our treatment cannot replace ongoing medical care by a primary care provider outside of the emergency department. Thank you for allowing the [facility] team to be part of your care today. Follow up with Dr. Henderson in 2-3 days for re-evaluation and further management. Prescriptions: Sulfamethoxazole/Trimethoprim [Bactrim DS 800 mg-160 mg] 1 tab PO BID #14 tab Instructions: Urinary Tract Infection, Adult (DC) Forms: [place] ([place]an) - Clinical Impression Clinical Impression: UTI (urinary tract infection) - Scribe Statement The provider has reviewed the documentation as recorded by the Javy Lacey Provider Attestation: All medical record entries made by the Javy were at my direction and personally dictated by me. I have reviewed the chart and agree that the record accurately reflects my personal performance of the history, physical exam, medical decision making, and the department course for this patient. I have also personally directed, reviewed, and agree with the discharge instructions and disposition.
[2018-10-06 16:01] LABS: URINE LEUKOCYTE ESTERASE 2+ Leu/uL (Negative)
[2018-10-06] MEDS ORDERED: Iodixanol 320 MG/ML 100 ML BOTTLE IV ONE (16:13)
--- NOTE | 2018-10-06 17:27 | CT ---
Date of service: 10/06/2018 PROCEDURE: CT Abdomen and Pelvis with contrast HISTORY: Left sided abdominal pain COMPARISON: 09/21/2018. TECHNIQUE: CT scan of the abdomen and pelvis was performed after administration of intravenous contrast. Oral contrast was not administered. Coronal and sagittal reformatted images were obtained. Contrast dose: 100 mL Visipaque Radiation dose: Total exam DLP = 1099.16 mGy-cm. This CT exam was performed using one or more of the following dose reduction techniques: Automated exposure control, adjustment of the mA and/or kV according to patient size, and/or use of iterative reconstruction technique. FINDINGS: LOWER THORAX: There is focal subpleural airspace disease in the right lung base. Small right pleural effusion. There is dependent atelectasis in the left lung base. Mild cardiomegaly. LIVER: Normal in size with homogeneous enhancement. No gross lesion or ductal dilatation. GALLBLADDER AND BILE DUCTS: Well distended. No calcified gallstones, wall thickening or pericholecystic fluid. PANCREAS: Normal in size with homogeneous enhancement. No gross lesion or ductal dilatation. SPLEEN: Normal in size and appearance. ADRENALS: No discrete nodule. KIDNEYS AND URETERS: Normal in size with homogeneous enhancement. Mild right hydronephrosis and mild fullness in the left collecting system. Mild diffuse dilatation of the right ureter. Stable 2.2 cm simple cyst in the left interpolar region. VASCULATURE: No aortic aneurysm. Mild aortic atherosclerotic calcifications present. BOWEL: Evaluation of the bowel is limited in the absence of oral contrast. The small bowel loops are normal in caliber. Colonic diverticulosis without CT evidence for acute diverticulitis. No bowel wall thickening or obstruction. APPENDIX: Normal appendix. PERITONEUM: No free fluid. No free air. LYMPH NODES: No enlarged lymph nodes. BLADDER: The urinary bladder is well distended. There is moderate circumferential mural thickening. REPRODUCTIVE: There is redemonstration of severe enlargement of the prostate gland with medium lowered hypertrophy resulting in mass effect on the base of the urinary bladder. BONES: No acute fracture. Diffuse bone demineralization and advanced multilevel degenerative disc disease. 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 OTHER FINDINGS: None. IMPRESSION: No acute abdominal or pelvic abnormality. Interval development of mild right hydronephrosis and mild fullness in the left collecting system as well as diffuse dilatation of the right ureter likely related to obstructive uropathy resulting from a severely enlarged prostate gland. Moderate diffuse circumferential mural thickening of the urinary bladder wall is also likely related to bladder outlet obstruction however underlying cystitis cannot be excluded.
[2018-10-06 17:45] LABS: BANDS 1 % (0-2); LYMPHOCYTE 7 % (20-40); MONOCYTE 11 % (0-10); NEUTROPHIL 81 % (50-75); TOTAL CELLS COUNTED 100
[2018-10-06 17:46] LABS: PLATELET ESTIMATE NORMAL (NORMAL)
[2018-10-06 18:30] VITALS: BP 149/88; PULSE 65; RESP 18
[2018-10-06 18:33] VITALS: O2SAT 99
== END 2018-10-06 18:30 | disposition home or self-care (01) ==
LOC: C.ER 13:30
DX: N39.0 Urinary tract infection, site not specified (principal)
CPT/HCPCS: 74177; 80053; 81001; 83690; 85025; 87086; 99284; Q9967